=== PATIENT | male | born 1965 | race Two or more races ===

== ENCOUNTER 2023-07-05 05:13 | Day surgery (SDC) | payer OTHER ==
[2023-07-05] MEDS ORDERED: ANESTHESIA TRAY IN PYXIS 1 EA TRAY MC ONE (06:15)
[2023-07-05] MEDS ORDERED: BUPIVACAINE 0.5 % PF 150 MG/30 ML VIAL ONE ×2 (06:15→06:28)
[2023-07-05] MEDS ORDERED: EPINEPHRINE (1:1000) 1 MG/ML AMPUL ONE (06:15)
[2023-07-05] MEDS ORDERED: MIDAZOLAM HCL 2 MG/2ML VIAL ONE (06:27)
[2023-07-05] MEDS ORDERED: ROCURONIUM BROMIDE 50 MG/5 ML ONE (06:27)
[2023-07-05] MEDS ORDERED: FAMOTIDINE/PF INJ 20 MG/2 ML VIAL IV ONE (06:27)
[2023-07-05] MEDS ORDERED: FENTANYL PF 100MCG/2ML AMPUL ONE (06:27)
[2023-07-05] MEDS ORDERED: ACETAMINOPHEN 325 MG TABLET ONE (06:29)
== END 2023-07-05 10:54 | disposition home or self-care (01) ==
LOC: DS 05:13
PROVIDERS: ATTEND Specialist
DX: M75.41 Impingement syndrome of right shoulder (principal); E66.9 Obesity, unspecified
CPT/HCPCS: 29824; 29826; 29827; 71045; J0171; J0690; J1100; J1885; J2250; J2405; J2704; J3010; J3490; J7030; A4217; A4565; C1713